=== PATIENT | male | born 1985 | race Caucasian/White ===

== ENCOUNTER 2016-08-28 23:51 | Emergency (ER) | payer OTHER ==
[~2016-08-28] VITALS: Ht 172.7 cm; Wt 75.0 kg
[2016-08-28 23:58] VITALS: BP 137/82; RESP 18; O2SAT 98
--- NOTE | 2016-08-29 00:29 | ED.REPORT ---
HPI-General Illness Peds Date of Service Aug 29, 2016 ED Provider: Cody Fernandez MD Pt is a 30 y/o male presenting to the ED c/o right ear pain onset yesterday. He states that he was diagnosed with right otitis media yesterday at a clinic and was given antibiotics and ear drops but his pain is increasing and his ear seems to be "plugging up". He denies fever, nasal congestion, cough. He had a perforated otitis media 2 years ago. Nursing Notes Stated Complaint: RT EAR PAIN Chief Complaint: ENT & Mouth Nursing Notes Reviewed: Yes Allergies: Coded Allergies: No Known Allergies (Unverified , 08/28/16) Scheduled PRN oxyCODONE-Acetaminophen 5-325 mg (oxyCODONE-Acetaminophen 5-325 mg) 1 Each Tablet 1 TAB PO Q4H PRN PRN For Pain General Time Seen by MD: 00:28 Chief Complaint Other (R ear) Hx Obtained from: Patient Arrived by: Walk-in Sudden in Onset?: No Onset Occurred: Yesterday Symptom Duration: Since onset Location: : Ear right Quality: Painful Severity: Current: Mild Severity: Maximum: Mild Past Medical History Past Medical History None reported Past Surgical History None reported Smoking History Unknown if Ever Smoker Ambulatory Status Ambulatory Status: Independent Review of Systems Full Review of Systems Constitutional: Denies: Chills, Fever Ears / Nose / Throat: Reports: Earache right, Denies: Earache left, Hearing loss right, Nasal congestion Respiratory: Denies: Non-productive cough, Shortness of breath GI: Denies: Abdominal pain, Nausea, Vomiting Complete sys rev & neg: except as marked. Physical Exam Initial Vital Signs Vital Signs (First) Date Time Temp Pulse Resp B/P Pulse Ox O2 Delivery O2 Flow Rate FiO2 08/28/16 23:58 37.8 99 18 137/82 98 Room Air Initial VS: Reviewed, Vital signs normal Head / Eyes: Atraumatic, Normocephalic, PERRL Neck: Supple, Full range of motion Respiratory: Breath sounds normal, Clear to auscultation, No respiratory distress Cardiovascular: Regular rate & rhythm, Heart sounds normal, Intact distal pulses Abdomen / GI: Soft, Non-tender Extremities: Vascular intact, Neuro intact, No swelling, No tenderness Skin: Warm, Dry, No cyanosis Neurologic: Alert, Oriented, Nonfocal Psychiatric: Mood/affect normal, Behavior normal, Normal thought content General / Constitutional: Awake, Alert, No apparent distress, Well appearing, Cooperative, Not toxic appearing ENT: Atraumatic, Airway patent, Mucous membranes moist, Pharynx NL Right TM erythematous with effusion Re-Eval/Medical Decision Med Decision/Clinical Course Right acute otitis media. Patient was given oral antibiotics earlier today. Recommend continuing them. Return precautions given. Re-Evaluation/Progress : Time of Eval: 00:42 Re-Evaluation/Progress Note: Pt rechecked. Informed pt of plan for treatment. Pt understands and agrees with plan for treatment. F/U instructions and RTER warnings given. All questions addressed. Counseled Regarding: Diagnosis, Need for follow-up, When/why to return to ED Discharge & Departure Impression: Primary Impression: Right otitis media Otitis media type: suppurative Chronicity: acute Recurrence: not specified Spontaneous tympanic membrane rupture: without spontaneous rupture Qualified Code: H66.001 - Acute suppurative otitis media without spontaneous rupture of ear drum, right ear Disposition: Home Discharge Condition )( All Prior VS Reviewed: Yes Condition: Stable Patient Instructions: Otitis Media (ED) Additional Instructions: Continue taking your antibiotics. Return if you pain significantly worsens or if you lose hearing of your right ear. Follow-up with your primary care doctor on Wednesday if symptoms do not improve. Scribe Attestation Portions of this note were transcribed by Chris Arshad. I, Dr. Fernandez personally performed the history, physical exam and medical decision-making; I reviewed and confirmed the accuracy of the information in the transcribed note. Signed by Ernesto Rainey, 08/29/16 - 0050 Cody Fernandez MD Aug 29, 2016 00:29 CHRIS ARSHAD Aug 29, 2016 00:45
[2016-08-29] MEDS ORDERED: OXYC1TAB24 PO (00:44)
== END 2016-08-29 01:12 | disposition home or self-care (01) ==
LOC: SED 23:54
DX: H66.001 Acute suppurative otitis media without spontaneous rupture of ear drum, right ear (principal)